=== PATIENT | male | born 1940 | race Caucasian/White ===

== ENCOUNTER 2016-07-12 18:32 | Emergency (ER) | payer MEDICARE, BC ==
[2016-07-12] MEDS ORDERED: oxyCODONE/Acetamin 5/325 MG* TAB PO ONE (19:21)
[2016-07-12] MEDS ORDERED: Ondansetron ODT TAB* 4 MG PO ONE ×2 (19:21→23:36)
--- NOTE | 2016-07-12 19:21 | RAD ---
HISTORY: Finger amputation COMPARISONS: None VIEWS: 4, Frontal, lateral, and oblique views of the right hand FINDINGS: BONE DENSITY: Normal. BONES: The patient is status post traumatic amputation of the distal phalanges of the third and fourth digits, with residual bony fragments of the distal phalanges. There is a fracture that involves the middle phalanx of the fourth digit. JOINTS: There is osteoarthrosis of the first CMC joint. There is osteoporosis of the fifth MP joint ALIGNMENT: There is no dislocation. SOFT TISSUES: Unremarkable. OTHER FINDINGS: None. IMPRESSION: 1. STATUS POST TRAUMATIC AMPUTATION OF THE DISTAL PHALANGES OF THE THIRD AND FOURTH DIGITS. THERE IS RESIDUAL BONY FRAGMENTS. THERE IS A FRACTURE OF THE MIDDLE PHALANX OF THE FOURTH DIGIT. 2. OSTEOARTHRITIS
--- NOTE | 2016-07-12 19:28 | ED ---
Upper Extremity Pain - HPI Summary HPI Summary: 76F w/ HTN and dyslipidemia presents with right middle and ring finger laceration. He amputated the distal phalanx of middle finger of right hand. He did this with table saw an hour ago. He was pushing an uneven piece of wood when fingers got sucked into saw. He is right handed. Not on any blood thinners. Does not know when last tetanus was. States pain is mild unless moves it. - History of Current Complaint Chief Complaint: EDLacSutureRecheck Stated Complaint: RT RING FINGER LAC Time Seen by Provider: 07/12/16 18:52 - Allergies/Home Medications Allergies/Adverse Reactions: Allergies Allergy/AdvReac Type Severity Reaction Status Date / Time No Known Allergies Allergy Verified 06/04/14 17:20 PMH/Surg Hx/FS Hx/Imm Hx Endocrine/Hematology History: Denies: Hx Diabetes Cardiovascular History: Reports: Hx Hypercholesterolemia, Hx Hypertension Denies: Hx Pacemaker/ICD GI History: Reports: Hx Gastroesophageal Reflux Disease History: Reports: Hx Benign Prostatic Hyperplasia, Hx Renal Disease - noted abnormal gfr Sensory History: Reports: Hx Contacts or Glasses Denies: Hx Hearing Aid Opthamlomology History: Reports: Hx Contacts or Glasses Psychiatric History: Denies: Hx Panic Disorder - Surgical History Surgery Procedure, Year, and Place: TONSILS AGE 6, STITCHES FROM CHAIN SAW INJURY, CATARACT, VASECTOMY, TURP Infectious Disease History: No Infectious Disease History: Denies: Traveled Outside the [place] in Last 30 Days - Family History Known Family History: Positive: Cardiac Disease - Social History Alcohol Use: Occasionally Substance Use Type: Reports: None Smoking Status (MU): Former Smoker Review of Systems Negative: Fever Negative: Chest Pain Negative: Shortness Of Breath Positive: Other - amputation of distal phalax of right middle phalanx Positive: Other - laceration of tip of distal phalax of right ring finger, avulsion of middle phlanax of dorsum of right ring finger All Other Systems Reviewed And Are Negative: Yes Physical Exam Triage Information Reviewed: Yes Vital Signs On Initial Exam: Initial Vitals Temp Pulse Resp BP Pulse Ox 97.5 F 65 18 122/78 97 07/12/16 18:37 07/12/16 18:37 07/12/16 18:37 07/12/16 18:37 07/12/16 18:37 Vital Signs Reviewed: Yes Appearance: Positive: Well-Appearing Skin: Positive: Warm, Dry, Other - multiple laceration of tip of distal phalax of right ring finger, flap like laceration involving extensor tendon on middle phlanax of right ring finger, amputation of distal phalax of middle finger right Head/Face: Positive: Normal Head/Face Inspection Eyes: Positive: Normal, Conjunctiva Clear ENT: Positive: Normal ENT inspection, Pharynx normal, TMs normal Respiratory/Lung Sounds: Positive: Clear to Auscultation, Breath Sounds Present Cardiovascular: Positive: Normal, RRR Musculoskeletal: Positive: Other - able to flex DIP but unable to extend DIP of right ring finger, good pulses, sensation grossly intact - [place] Coma Scale Coma Scale Total: 15 Procedures - Splinting Location: right hand Hand-Made Type: orthoglass Splint: wrist Pre-Proc Neuro Vasc Exam: normal Post-Proc Neuro Vasc Exam: normal Diagnostics - Vital Signs Vital Signs Temp Pulse Resp BP Pulse Ox 07/12/16 18:55 97.5 F 65 18 125/78 98 07/12/16 18:37 97.5 F 65 18 122/78 97 - Laboratory Lab Statement: Any lab studies that have been ordered have been reviewed, and results considered in the medical decision making process. - Radiology hand Xray Interpretation: Positive (See Comments) - IMPRESSION: 1. STATUS POST TRAUMATIC AMPUTATION OF THE DISTAL PHALANGES OF THE THIRD AND FOURTH DIGITS. THERE IS RESIDUAL BONY FRAGMENTS. THERE IS A FRACTURE OF THE MIDDLE PHALANX OF THE FOURTH DIGIT. 2. OSTEOARTHRITIS Radiology Interpretation Completed By: Radiologist Course/Dx - Course Course Of Treatment: 76M presents with amputation of distal phalanx of right middle finger and multiple laceration of ring fingers. got right hand caught in table saw. is left handed and works as [employer]. gave tetanus and ancef. called dr gomez who came in and sutured area back together. dr gomez placed in splint and will see on Saturday. gave keflex to continue on. patient understands and agrees with plan - Diagnoses Differential Diagnosis/HQI/PQRI: Positive: Fracture (Open), Fracture (Closed), Laceration Provider Diagnoses: amputation distal phalanx middle finger, Laceration of right ring finger - Physician Notifications Discussed Care Of Patient With: dr gomez Time Discussed With Above Provider: 20:00 - will see in ED Discharge - Discharge Plan Condition: Good Disposition: HOME Prescriptions: Cephalexin CAP* [Keflex CAP*] 500 mg PO TID #30 cap HYDROcodone/ACETAMIN 5-325 MG* [[place] 5-325 TAB*] 1 tab PO Q6H PRN #20 tab MDD 4 PRN Reason: Pain Ondansetron ODT TAB* [Zofran 4 MG Odt TAB*] 4 mg PO Q6H PRN #15 tab.odt PRN Reason: Nausea Patient Education Materials: Finger Amputation (ED) Referrals: Fausto Gomez MD [Medical Doctor] - Dottie James MD [Primary Care Provider] - Additional Instructions: Call tomorrow to set up appointment for Saturday to follow up with ortho Keep splint on area Avoid getting water on area Take Keflex three times a day starting tomorrow Take ibuprofen or Tylenol for pain and use narcotic for break through pain Take zofran every 6 hours as needed for nausea Use OTC laxative for constipation from narcotic usage Return to ED if develop fever or any new or worsening symptoms Images - Images Hands: 1 - amputated 2 - flap like laceration 3 - multiple lacerations
[2016-07-12] MEDS ORDERED: Tetan/Diph/Pertus SYR(Tdap)* 0.5 ML SYR(BOOSTRIX) use SYR IM ONE (19:47)
[2016-07-12] MEDS ORDERED: ceFAZolin 1 GM in Dextrose (*) 1 GM/50 ML BAG IVPB ONE (19:48)
[2016-07-12] MEDS ORDERED: HYDROcodone/ACETAMIN 5-325 MG* 1 TAB PO ONE (23:36)
[2016-07-13 00:43] VITALS: BP 118/69
--- NOTE | 2016-07-13 12:39 | CONS ---
CONSULTATION NOTE: DATE OF CONSULTATION: 07/12/16 REASON FOR CONSULTATION: Right long finger and ring finger traumatic amputations. 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 The patient has no prior history of injury to these fingers. The patient was pushing an uneven piece of wood when the fingers got stuck in the saw and cut. The patient did not bring any fingertips with him to the emergency department. The patient did not know his tetanus status, but was not on any blood thinners. The patient's pain was mild unless he tried to move his fingers. PAST MEDICAL HISTORY: Hypercholesterolemia, hypertension, gastroesophageal reflux disease, benign prostatic hyperplasia, renal disease. PAST SURGICAL HISTORY: Tonsillectomy, cataract excision, skin laceration from chainsaw injury, vasectomy, transurethral resection of the prostate. MEDICATIONS: None. ALLERGIES: No known drug allergies. SOCIAL HISTORY: Occasional alcohol use. Former smoker, distant past, at least 10 pack year history. REVIEW OF SYSTEMS: No recent fevers, sweats, or chills. No chest pain, palpitations. No shortness of breath. No abdominal pain or diarrhea. No other joint pain. PHYSICAL EXAMINATION: No acute distress, alert and oriented x3, appropriate mood and effect, appropriate dress and hygiene, nonantalgic gait, contralateral left upper extremity and bilateral lower extremities are well coordinated. Examination of the right hand was performed by me in the emergency department after a physician environmental services assistant in the emergency department had thoroughly irrigated the wounds and had the patient soak his fingertips in saline. Examination of the long fingertip revealed some shortening of that finger, consistent with traumatic amputation. It appeared as though perhaps half of the length of the finger overlying the distal phalanx had been removed. The patient had much soft tissue visible. He also had a volar flap of skin with subcutaneous tissue attached to it and still attached. A closer examination was performed when I did a procedure. No profuse bleeding, although there was some light slow drainage of blood. Right ring finger demonstrated a significant longitudinal jagged laceration of skin and soft tissue, running from tissue overlying the middle phalanx to that overlying the distal phalanx and continuing to the distal tip of the finger. There was clearly some damage to the paronychia skin fold on the ulnar side. Extensor mechanism visible with some laceration to it. The ulnar lateral band appeared mostly intact, while the radial lateral band was visible and cut distally, but not visible proximally. Extensor tendon visible with some element of laceration to it. Ring finger not bleeding profusely. IMAGING: Four x-ray views of the right hand were obtained in the emergency department and reviewed by me. Middle finger x-ray demonstrated significant comminution of distal phalanx fracture. Many fragments are visible, including there is a dorsal and displaced fragment of bone. Joint space not well visualized. Clear soft tissue visible. Trauma to the ring finger distal phalanx less clearcut. It appears as though part of the dorsal cortex of the distal phalanx proximally has been stripped off with a fracture. There is a clear volar droop of both fingers at the DIP joint, ring finger more than the long finger. Oblique views allow good visualization of that displaced dorsal cortex of the ring finger DIP joint. No other clear fracture is visible in other bones of the long and ring fingers and in other fingers of the hand. The patient has an age-appropriate joint space narrowing diffusely. ASSESSMENT: 1. Left long finger traumatic amputation at the level of the mid distal phalanx. 2. Complex soft tissue injury, right ring finger, including defect of extensor mechanism (radial lateral band) 3. Right long and ring finger distal phalanx fractures, open. PLAN: 1. Confirmed with emergency department staff that the patient's tetanus had been updated and that the patient was given Ancef IV. 2. Performed irrigation and debridement and closure procedure of right long and ring fingers in the emergency department. 3. Using a sterile field and sterile technique, after having obtained a written consent from the patient, I performed the above-mentioned procedure. The patient had already had a digital block of both fingers performed by emergency department physician environmental services assistant. This was still providing anesthesia. I placed a vessel loop about the base of the patient's right ring finger for some tourniquet effect. I then washed out the right ring finger wound well. The patient had intact albeit partially lacerated extensor tendon with deviation in the radioulnar plane distally of the extensor tendon. He had no visible bone showing. Therefore, I placed a large number of Prolene 4-0 suture stitches, simple, in the wound from the level of the middle phalanx to the distal fingertip. This brought together the skin defects well. As well, the right ring finger went from a droop at the DIP joint to being fully extended with this repair. The patient's digital block had worn off by this point and so I performed a digital block of the patient's right long finger. I returned 5 minutes later and worked on the right middle finger. I placed a tourniquet using a vessel loop around the base of the right long finger. I debrided clotted blood from the distal tip at the site of the traumatic amputation. I removed some small flecks of bone. I performed very little, almost no, debulking of soft tissue and was able to see that much of the distal wound could be closed with a flap of volar skin and soft tissue. I placed a number of simple stitches using 4-0 Prolene suture. I was able to close [id number]-dj-hymb around much of the wound with the exception of either the radial or ulnar side had some beefy subcutaneous tissue visible, but no bone. Of note, the patient seemed to have lost the entire nail plate. I left a small, seemingly large fragment of dorsal bone, although I had initially considered removing it. I wanted to give the patient a chance of some healing, semi-functional component of P3 bone to give him as much length as possible. Tourniquet was removed. Neither wound was bleeding actively. I cleaned the patient's hand and fingers up nicely. I applied a Xeroform followed by dry sterile dressing, followed by Kerlix, followed by Coban. I coban'd the injured 2 fingers together. I then placed a volar wrist splint that extended the patient's distal fingertips. 4. The patient will be discharged from the emergency department. 5. The patient will be on Keflex 500 mg p.o. q.8 hours times 10 days. 6. The patient will be given hydrocodone with acetaminophen by emergency department staff to take as needed for pain. 7. The patient will call tomorrow to make an appointment to follow up with me on Saturday, 4 days from now, for a wound check, imaging, and planning for temporary and definitive management of these complex injuries. 8. With regards to wound care, I decided that the patient should just keep dressing intact and in place without dressing changes or soaks until he sees me in the office in 4 days. 9. I provided my cell phone number to the patient and his and told them that if his dressing saturates or if he has any questions or problems, that they should feel welcome to get in touch with me at any time. [id number]/CPS #: [id number] MTDD
== END 2016-07-13 00:42 | disposition home or self-care (01) ==
LOC: ED 18:32
DX: S68.122A Partial traumatic metacarpophalangeal amputation of right middle finger, initial encounter (principal); S61.214A Laceration without foreign body of right ring finger without damage to nail, initial encounter; W29.8XXA Contact with other powered hand tools and household machinery, initial encounter; Y93.9 Activity, unspecified; Y92.9 Unspecified place or not applicable; Z87.891 Personal history of nicotine dependence
CPT/HCPCS: 90715; 99283; A9270-GY; J0690

== ENCOUNTER 2017-11-19 16:01 | Emergency (ER) | payer MEDICARE ==
--- NOTE | 2017-11-19 18:22 | UC ---
Laceration HPI - HPI Summary HPI Summary: 77 y/o male presents to the urgent care c/o laceration on top of his scalp w/ a glass window that fell on his head. Pt states he was washing the window. Bleeding stopped w/ pressure. only big piece of glass cut his scalp. Pain is 1/ 10 at touch. Last Tetanus vaccine was taken on 07/2015 s/p finger laceration. Pt dneies numbness or tingling sensation, LOC, dizziness, ALVAREZ, SOB, chest pain, abdominal pain, N/V/D. - History Of Current Complaint Chief Complaint: UCLaceration Stated Complaint: HEAD LACERATION Time Seen by Provider: 11/19/17 18:19 Hx Obtained From: Patient Laceration Location: Head - top of scalp Mechanism Of Injury: Sharp Trauma Onset/Duration: Sudden Onset, Lasting Hours - 3hrs Severity: Mild Pain Intensity: 0 Pain Scale Used: 0-10 Numeric Aggravating Factors: Other: - touch - Allergies/Home Medications Allergies/Adverse Reactions: Allergies Allergy/AdvReac Type Severity Reaction Status Date / Time No Known Allergies Allergy Verified 11/19/17 16:45 Home Medications: Home Medications Ezetimibe TAB* [Zetia TAB*] 10 mg PO DAILY 11/19/17 [History Confirmed 11/19/17] Memantine HCl 10 mg PO BID 11/19/17 [History Confirmed 11/19/17] [place]-3 Fatty Acids/Fish Oil [Fish Oil 1,000 mg Capsule] 1 each PO 11/19/17 [ History] PMH/Surg Hx/FS Hx/Imm Hx Previously Healthy: Yes Endocrine History: Diabetes, Hypothyroidism Cardiovascular History: Hypertension - Surgical History Surgical History: Yes Surgery Procedure, Year, and Place: TONSILS AGE 6, STITCHES FROM CHAIN SAW INJURY, CATARACT, VASECTOMY, TURP - Family History Known Family History: Positive: Cardiac Disease - Social History Occupation: Retired Lives: With Family Alcohol Use: Occasionally Substance Use Type: None Smoking Status (MU): Former Smoker - Immunization History Most Recent Influenza Vaccination: 2012 Most Recent Tetanus Shot: 07/12/2016 Most Recent Pneumonia Vaccination: 2010 Hx Tetanus, Diphtheria Vaccination: Yes - 07/12/2016 Review of Systems Constitutional: Negative Skin: Other - scalp laceration w/ a broken window Eyes: Negative ENT: Negative Respiratory: Negative Cardiovascular: Negative Gastrointestinal: Negative Genitourinary: Negative Motor: Negative Neurovascular: Negative Musculoskeletal: Negative Neurological: Negative Psychological: Negative Is Patient Immunocompromised?: No All Other Systems Reviewed And Are Negative: Yes Physical Exam - Summary Physical Exam Summary: Vital Signs Reviewed: Yes General: well developed, well nourished female sitting in the examining table w/ o any apparent distress Eye Exam: Normal Eyes: Positive: Conjunctiva Clear - PERRLA, EOMI, fundi grossly normal ENT: Positive: Normal ENT inspection, Hearing grossly normal, Pharynx normal, TMs normal Neck: Positive: Supple, Nontender, No Lymphadenopathy Respiratory: Positive: Chest non-tender, Lungs clear, Normal breath sounds, No respiratory distress Cardiovascular: Positive: RRR, No Murmur, Pulses Normal, Brisk Capillary Refill Abdomen Description: Positive: Nontender, No Organomegaly, Soft. Negative: CVA Tenderness (R), CVA Tenderness (L) Bowel Sounds: Positive: Present Musculoskeletal: Positive: Strength Intact, ROM Intact, No Edema Neurological: Positive: Alert, Muscle Tone Normal Psychological Exam: Normal Skin: Positive: positive irregular superficial avulsed skin laceration t the mid frontal scalp about 0.8cm cm in size, no bleeding, no foreign body observed. mild tenderness to palpation, sensation intact, capillary refill brisk , and pulses WNL. Triage Information Reviewed: Yes Vital Signs: Initial Vital Signs Temp 98.3 F 11/19/17 16:42 Pulse 60 11/19/17 16:42 Resp 18 11/19/17 16:42 BP 123/65 11/19/17 16:42 Pulse Ox 94 11/19/17 16:42 Laceration Repair - Laceration Repair 1 Description: Irregular - w/ mild avulsed skin Laceration Size After Repair: Length (cm) - 0.8cm in size Modified For Repair: No Cleansing Completed Via Routine Prep: Yes Irrigation With Pressure Irrigation Device: Yes Closure Material: Skin Adhesive, SteriStrips - 3 steri-strips Closure Method: Single Layer Suture Of: Skin Laceration Course/Dx - Course/Dx Course Of Treatment: 77 y/o male presents to the urgent care c/o laceration on top of his scalp w/ a glass window that fell on his head. Pt states he was washing the window. Bleeding stopped w/ pressure. only big piece of glass cut his scalp. Pain is 1/10 at touch. Last Tetanus vaccine was taken on 07/2015 s/p finger laceration. Pt dneies numbness or tingling sensation, LOC, dizziness, ALVAREZ , SOB, chest pain, abdominal pain, N/V/D. Hx obtained. Pt w/ a superficial irregular skin avulsed laceration at the mid frontal scalp about 0.8cm in size on examination. LACERATION PROCEDURE NOTE: . Copious irrigation was done with saline and the wound explored. There was no FB or deep structure injury noted. wound cleaned w/ Iodine swabs. Laceration closed w/ skin adhesive and 3 steri- strips. Wound dressed w/ sterile gauze.The Pt tolerated the procedure well without adverse effects. Neurovascular intact and FROM of head. Pt is hemodynamycally stable. Pt advised if any signs of infection develop to immediately return to the urgent care of PCP for further management and treatment. Pt understood and agreed and left the clinic ambulating A&Ox3. - Differential Dx - Laceration/Wound Differental Diagnoses: Avulsion, Dehiscence, Laceration, Puncture Wound, Tendon Laceration Provider Diagnoses: 1- Scalp laceration repair Discharge - Sign-Out/Discharge Documenting (check all that apply): Patient Departure - D/c home All imaging exams completed and their final reports reviewed: No Studies - Discharge Plan Condition: Stable Disposition: HOME Prescriptions: Bacitracin OINTMENT* 1 applic TOPICAL BID #1 tube Patient Education Materials: Laceration (ED), Skin Adhesive Care (ED) Referrals: Dottie James MD [Primary Care Provider] - 3 Days Additional Instructions: 1-Please apply topical antibiotic over the wound after the steri-strips fall off. Keep wound clean and dry 2- Take I Tylenol PO q6-8hrs prn for pain or swelling. 3- If you develop ALVAREZ , severe pain , redness or signs of infection around wound please return to the Urgent care or f/u w/ your PCP for further management. - Billing Disposition and Condition Condition: STABLE Disposition: Home
[2017-11-19 19:01] VITALS: BP 120/62
== END 2017-11-19 18:55 | disposition home or self-care (01) ==
LOC: UCEAST 16:01
DX: S01.01XA Laceration without foreign body of scalp, initial encounter (principal); W20.8XXA Other cause of strike by thrown, projected or falling object, initial encounter; Y93.E9 Activity, other interior property and clothing maintenance; Y92.9 Unspecified place or not applicable; Z87.891 Personal history of nicotine dependence
CPT/HCPCS: 12001; 99212; G0463